=== PATIENT | female | born 1950 | race Caucasian/White ===

== ENCOUNTER 2023-04-02 09:33 | Day surgery (SDC) | payer MEDICARE, OTHER ==
[~2023-04-02 09:33] MED LIST: EPINEPHrine 1 MG/ML 30 ML MDV IRR SCH; Lactated Ringers 1,000 ML IV SCH; Lidocaine 1% 5 ML VIAL ONE; Midazolam 1 MG/ML 2 ML SDV ONE; Ondansetron 4 MG/2 ML SDV ONE; Propofol 200 MG/20 ML SDV ONE; Sodium Chloride 0.9% 10 ML Syringe FLUSH PRN; Sodium Chloride 0.9% 10 ML Syringe FLUSH SCH; fentaNYL 250 MCG/5 ML SDV ONE
[2023-04-02] MEDS: Bupivacaine 0.25% 10 ML SDV ONE ×2 (10:31→11:50)
[2023-04-02] MEDS ORDERED: ceFAZolin 2 GM Vial ONE (10:47)
[2023-04-02] MEDS ORDERED: Dexamethasone 4 MG/ML 5 ML MDV ONE (11:12)
[2023-04-02] MEDS ORDERED: Lactated Ringers 1,000 ML ONE (11:29)
[2023-04-02] MEDS ORDERED: ePHEDrine 50 MG/ML SDV ONE (11:38)
[2023-04-02] MEDS ORDERED: Ketorolac 15 MG/ML SDV ONE (11:54)
[2023-04-02] MEDS ORDERED: Ondansetron 4 MG/2 ML SDV IVPUSH PRN (12:15)
[2023-04-02] MEDS ORDERED: fentaNYL 100 MCG/2 ML SDV IVPUSH PRN (12:15)
[2023-04-02] MEDS ORDERED: HYDROmorphone 0.5 MG/0.5 ML Syringe IVPUSH PRN (12:15)
[2023-04-02] MEDS ORDERED: Acetaminophen/HYDROcodone 325-5 MG Tab PO ONE (14:07)
== END 2023-04-02 14:20 | disposition home or self-care (01) ==
LOC: JD.SDS 09:33
PROVIDERS: ATTEND Orthopaedic Surgery
DX: M23.304 Other meniscus derangements, unspecified medial meniscus, left knee (principal); M17.12 Unilateral primary osteoarthritis, left knee; M22.42 Chondromalacia patellae, left knee; I10 Essential (primary) hypertension; M81.0 Age-related osteoporosis without current pathological fracture; Z79.899 Other long term (current) drug therapy
CPT/HCPCS: 29881; 36415; 84132; A9270; J0171; J0690; J1100; J1885; J2250; J2405; J2704; J3010; J3490; J7120; 01400